=== PATIENT | female | born 1975 | race African-American/Black ===

== ENCOUNTER 2020-08-16 20:28 | Emergency (ER) | payer SELFPAY ==
[2020-08-16 20:35] VITALS: BP 145/100; PULSE 117; RESP 20; TEMP 37; O2SAT 99
--- NOTE | 2020-08-16 20:47 | ED.DENTAL ---
HPI - Dental/Oral General Chief complaint: Dental/Oral Stated complaint: Swelling/pain in mouth Source: patient Mode of arrival: ambulatory Limitations: no limitations History of Present Illness HPI Narrative: this is a 45-year-old female with no previous past medical history presents with dental pain, has had a cracked tooth in the right upper molar area with loose filling with surrounding gum inflammation with tender right submandibular gland with no shortness of breath no nausea vomiting or abdominal pain. MD Complaint: tooth pain Teeth map: 1. cracked tooth with loose filling and surrounding gum inflammation Onset (ago): day(s) Duration: constant Severity: moderate Severity scale (1-10): 8 Relieving factors: nothing Exacerbating factors: chewing and drinking fluids Context: history of dental caries Associated symptoms: gum swelling Related Data Allergies Allergy/AdvReac Type Severity Reaction Status Date / Time NSAIDS (Non-Steroidal AdvReac Other Verified 08/16/20 20:48 Anti-Inflamma Review of Systems Review of Systems: All systems reviewed & are unremarkable except as noted in HPI and below PMFSH Past Medical History Medical History Patient denies medical problems Surgical History Surgical History Gastric bypass status for obesity Exam Const: General: no acute distress and alert Orientation/consciousness: patient oriented x3 HENMT: Head: normal to inspection Other: right upper molar gum inflammation and dental tenderness. Eyes: Conjunctivae: conjunctivae normal Pupils: Equal, round and reactive pupils present Neck: Neck: normal visual inspection and lymphadenopathy Other: Right submandibular gland swelling and tenderness with palpation Chest: Chest palpation & inspection: normal inspection of the chest Resp: Effort & Inspection: normal respiratory effort Auscultation: clear to auscultation bilaterally Cardio: Rate: regular rate Rhythm: regular rhythm GI: Auscultation: normal bowel sounds Back/Spine/Pelvis: Back: no CVA tenderness Skin: General skin exam: normal color Rashes: no rashes Neuro: General: patient oriented x3, moves all extremities and no meningeal signs Extrem: General: normal to inspection Course Course Emergency Course: patient received 1st dose of Augmentin and a dose of p.o. tramadol and advised patient to follow up with her dentist in sent subsequent doses of antibiotic and pain medication to her pharmacy. Vital Signs Vital signs: Vital Signs Temperature 37.0 C 08/16/20 20:35 Pulse Rate 117 H 08/16/20 20:35 Respiratory Rate 20 08/16/20 20:35 Blood Pressure 145/100 H 08/16/20 20:35 Pulse Oximetry 99 08/16/20 20:35 Temperature 37.0 C 08/16/20 20:35 Pulse Rate 117 H 08/16/20 20:35 Respiratory Rate 20 08/16/20 20:35 Blood Pressure 145/100 H 08/16/20 20:35 Pulse Oximetry 99 08/16/20 20:35 Critical Care Time Critical Care Time Critical Care Time: No Discharge Plan Discharge Clinical Impression: Toothache, Dental abscess Patient Disposition: Home, Self-Care Condition: Stable Instructions: Dental Abscess (ED), Toothache (ED) Additional Instructions: take medicine as prescribed, and follow-up with dentist as soon as possible for further evaluation treatment. Prescriptions: New tramadol [Ultram] 50 mg tablet 50 mg PO Q6H PRN (Reason: pain) Qty: 20 RF: 0 amoxicillin-pot clavulanate [Augmentin] 875-125 mg tablet 1 tablet PO Q12H Qty: 20 RF: 0 Follow-up/Referrals: UNKNOWN,DOCTOR [Primary Care Provider] - Stand Alone Forms: Work/School Release IP Time of Disposition: 20:53
[2020-08-16] MEDS: AMOXICILLIN/CLAVULANATE K 875-125 MG TAB 1 TABLET PO (20:50)
[2020-08-16] MEDS: traMADol HCL (*CRX) 50 MG TABLET PO (20:50)
== END 2020-08-16 20:59 | disposition home or self-care (01) ==
PROVIDERS: Emergency Provider Emergency Medicine
DX: K08.89 Other specified disorders of teeth and supporting structures (principal); K04.7 Periapical abscess without sinus
CPT/HCPCS: 99283; A9270